=== PATIENT | female | born 1995 ===

== ENCOUNTER 2022-09-08 02:18 | Emergency (ER) | payer OTHER, SELFPAY ==
[2022-09-08 02:22] VITALS: BP 129/84; PULSE 90; RESP 16; TEMP 36.1; O2SAT 98; BMI 32.7
[2022-09-08 02:48] LABS: IDNOW Serial# 6674DD1D; Strep A Nucleic Acid Invalid (Negative)
[2022-09-08 03:04] LABS: IDNOW Serial# 08D9AD1C; Strep A Nucleic Acid Positive (Negative)
--- NOTE | 2022-09-08 03:13 | ED_ITS ---
HPI - URI/Sore Throat General Chief Complaint: Upper Respiratory Symptoms Stated Complaint: Sore throat Time Seen by Provider: 09/08/22 02:52 Source: patient Mode of arrival: ambulatory History of Present Illness HPI Narrative: 27-year-old female presents with persistent sore throat and enlarged tonsils for the past 4 days, initially was trying to treat with 500 mg dose of amoxicillin for 3 days but states that just continued to get worse. Related Data Previous Rx's Medication Instructions Recorded amoxicillin 875 mg-potassium 1 tab PO BID 10 days #20 tabs 09/08/22 clavulanate 125 mg tablet Allergies Allergy/AdvReac Type Severity Reaction Status Date / Time No Known Allergies Allergy Verified 09/08/22 02:21 Review of Systems Review of Systems: Pertinent positives and negatives as stated in HPI [facility] Past Medical History Source: nursing notes reviewed Social History Social History Advance Directives: No Advance Directives Information Provided: Yes Physical Exam Vital Signs: Vital Signs: Last Vital Signs Temp 97 F 09/08/22 02:22 Pulse 90 09/08/22 02:22 Resp 16 09/08/22 02:22 BP 129/84 09/08/22 02:22 Pulse Ox 98 09/08/22 02:22 O2 Del Method Room Air 09/08/22 02:22 BMI result Body Mass Index 32.7 VITAL SIGNS: Reviewed. GENERAL: Well developed, well nourished, in no acute distress. HEAD: Normocephalic/atraumatic EYES: PERRLA, EOMI EARS: Ext canals without abnormality, TMs non-bulging and non-erythematous NOSE: Nares patent bilateral OROPHARYNX: no oral lesions noted, posterior pharynx clear and erythematous with noted tonsillar enlargement/erythema/exudates NECK: Supple, + adenopathy LUNGS: Normal breath sounds. No adventitious sounds or accessory muscle use. SpO2<98> CARDIOVASCULAR: Regular rate and rhythm without noted murmurs ABDOMEN: Soft, non-tender, non-distended with bowel sounds. MUSCULOSKELETAL: No tenderness, deformities, or effusions noted on gross inspection. EXTREMITIES: No cyanosis, clubbing or edema. SKIN: Inspection of the skin reveals no rashes NEUROLOGIC: Alert and oriented x 4. Strength and sensation to light touch were grossly intact x 4. Medical Decision Making Medical Decision Making [facility] Narrative: 27-year-old female with clinical exam and review of investigations my interpretation is that she has a strep pharyngitis and will be treated with the combination of Tylenol as well as initial Augmentin medication here in the emergency room and then receive a prescription for the remaining course. She is otherwise discharged home in stable condition. Differential Diagnosis Please see the discussion above Lab Data Labs: Lab Results 09/08/22 09/08/22 Range/Units 02:29 02:54 S. pyogenes GrpA SAÚL Invalid Positive A (Negative) Discharge Plan Discharge Clinical Impression: Strep pharyngitis Patient Disposition: Home, Self-Care Instructions: Strep Throat (ED) Additional Instructions: 1. Recommend [id number] Tylenol/ibuprofen as needed for pain control. 2. Complete the entire course of antibiotics as ordered. Return to the ER for any worsening symptoms. Prescriptions: New amoxicillin-pot clavulanate 875-125 mg tablet 1 tab PO BID 10 Days Qty: 20 0RF
[2022-09-08] MEDS: Acetaminophen 325 MG TABLET 975 MG PO (03:52)
[2022-09-08] MEDS: Amoxicillin/Potassium Clav 875 MG TABLET PO (03:53)
== END 2022-09-08 04:09 | disposition home or self-care (01) ==
PROVIDERS: Emergency Provider Student in an Organized Health Care Education/Training Program
DX: J02.0 Streptococcal pharyngitis (principal)
CPT/HCPCS: 87651; 99283